=== PATIENT | female | born 1975 | race Caucasian/White ===

== ENCOUNTER 2016-10-01 15:03 | Emergency (ER) | payer OTHER ==
[~2016-10-01] VITALS: Ht 12.7 cm; Wt 574.6 kg
[~2016-10-01 15:03] MED LIST: IBUP-1222 PO; OXYC-302 PO; PREN1TAB60 PO
[2016-10-01 17:17] LABS: HIV 1&2 ANTIBODY SCREEN Nonreactive (Nonreactive); HIV-1 p24 ANTIGEN Nonreactive (Nonreactive)
[2016-10-01 17:35] VITALS: BP 113/80
[2016-10-03 10:45] LABS: HEP B SURF. AB > 1000.0 mIU/mL (0.0-10.0)
[2016-10-03 11:23] LABS: HEPATITIS C VIRUS ANTIBODY Nonreactive (Nonreactive)
== END 2016-10-01 17:37 | disposition home or self-care (01) ==
LOC: ED 17:02
DX: S39.82XA Other specified injuries of lower back, initial encounter (principal); W46.1XXA Contact with contaminated hypodermic needle, initial encounter; Y93.89 Activity, other specified; Y92.89 Other specified places as the place of occurrence of the external cause; Y99.8 Other external cause status
CPT/HCPCS: 36415; 86703; 86705; 86706; 86803; 87340; 87899; 99284; G0435